=== PATIENT | male | born 1965 | race Caucasian/White ===

== ENCOUNTER 2024-05-17 12:36 | Outpatient (OUT) | payer BC, SELFPAY | END 2024-05-17 12:37 | disposition home or self-care (01) | LOC: PST 12:37 | PROVIDERS: PCP Family Medicine; Visit Provider Surgery | DX: Z12.11 Encounter for screening for malignant neoplasm of colon (principal) ==

== ENCOUNTER 2024-05-22 07:34 | Day surgery (SDC) | payer BC, SELFPAY ==
--- OUTSIDE RECORDS SUMMARY | 2024-05-22 07:38 | XMS_ITS | CCD ---
Author Organization [facility] Care Team Providers Care End Maker Name Role Phone DR MIHIR ROGERS Primary Care Unavailable MARCO DIALLO Admitting Unavailable KATKOMARCO Attending Unavailable KATKOMARCO Consulting Unavailable THEODORE, DR ANTHONY Mckeon Admitting Unavailable THEODORE, DR ANTHONY Mckeon Attending Unavailable THEODORE, DR ANTHONY Mckeon Primary Care Unavailable THEODORE, DR ANTHONY Mckeon Consulting Unavailable THEODORE, DR ANTHONY Mckeon Admitting Unavailable THEODORE, DR ANTHONY Mckeon Attending Unavailable THEODORE, DR ANTHONY Mckeon Primary Care Unavailable THEODORE, DR ANTHONY Mckeon Consulting Unavailable NADERER, DR MIHIR Mckeon Admitting Unavailable NADERER, DR MIHIR Mckeon Attending Unavailable NADERER, DR MIHIR Mckeon Primary Care Unavailable NADERER, DR MIHIR Mckeon Consulting Unavailable NADERER, DR MIHIR Mckeon Admitting Unavailable NADERER, DR MIHIR Mckeon Attending Unavailable NADERER, DR MIHIR Mckeon Primary Care Unavailable NADERER, DR MIHIR Mckeon Consulting Unavailable NADERER, DR MIHIR Mckeon Admitting Unavailable NADERER, DR MIHIR Mckeon Attending Unavailable NADERER, DR MIHIR Mckeon Primary Care Unavailable WEST, DR DEBBI Anaya Consulting Unavailable NADERER, DR MIHIR Mckeon Consulting Unavailable SHAYLEE SANTIAGO Admitting Unavailable SHAYLEE SANTIAGO Attending Unavailable SHAYLEE SANTIAGO Consulting Unavailable THEODORE, DR ANTHONY Mckeon Primary Care Unavailable NADEREJoce, MIHIR Primary Care Physician [phone] MIHIR ROGERS Attending Unavailable NADERER, MIHIR Admitting Unavailable NADERER, MIHIR Attending Unavailable Unavailable Primary Care Provider UnavailMICHAEL Pereira Attending Unavailable Medications Current Medications Medication Drug Class(es) Dates Sig (Normalized) Sig (Original) bisacodyl 5 mg delayed release oral tablet (2 sources) Stimulant Laxative Start: 05-15-2024 take 1 tablet by mouth in the morning bisacodyl (Dulcolax) 5 MG EC tablet Indications: Encounter for screening colonoscopy Take 1 tablet (5 mg) by mouth in the morning and 1 tablet (5 mg) before bedtime. Do not crush, chew, or split. Take as detailed on clinic hand out for colonoscopy prep. 4 tablet 05/15/2024 Active Start: 05-15-2024 take 1 tablet by reinaldo th in the morning bisacodyl (Dulcolax) 5 MG EC tablet Indications: Encounter for screening colonoscopy Take 1 tablet (5 mg) by mouth in the morning and 1 tablet (5 mg) before bedtime. Do not crush, chew, or split. Take as detailed on clinic hand out for colonoscopy prep. 4 tablet 05/15/2024 Active hydroCHLOROthiazide 12.5 mg / lisinopril 20 mg oral tablet (3 sources) Thiazide Diuretic, Angiotensin Converting Enzyme Inhibitor Start: 10-11-2023 End: 10-10-2024 take 1 tablet by mouth once daily lisinopril-hydroCHLOROthiazide 20-12.5 MG tablet Indications: Essential hypertension, benign (CMS/HCC) Take 1 tablet by mouth Daily 30 tablet 11 10/11/2023 10/10/2024 Active polyethylene glycol 3350 85657 mg powder for oral solution (2 sources) Osmotic Laxative Start: 05-15-2024 End: 05-15-2024 take 17 g by mouth once polyethylene glycol, PEG, 3350 (Glycolax) 17 GM/SCOOP powder Indications: Colonoscopy Take 238 g by mouth 1 (one) time for 1 dose Take as detailed from clinic hand out for colonoscopy prep 238 g 05/15/2024 05/15/2024 Active Problems Active Problems Problem Classification Problem Date Documented Date Episodic/Chronic Other nutritional; endocrine; and metabolic disorders (4 sources) Obesity, unspecified; Translations: [OBESITY UNSPECIFIED] Onset: 08-31-2021 Chronic Other screening for suspected conditions (not mental disorders or infectious disease) (12 sources) Abnormal result of other cardiovascular function study; Translations: [Other specified abnormal findings of blood chemistry] Onset: 09-23-2020 Episodic Past or Other Problems Problem Classification Problem Date Documented Da te Episodic/Chronic Immunizations and screening for infectious disease (4 sources) Encounter for immunization; Translations: [ENCOUNTER FOR IMMUNIZATION] Onset: 09-08-2020 Episodic Nonspecific chest pain (4 sources) Chest pain, unspecified; Translations: [CHEST PAIN UNSPECIFIED] Onset: 04-14-2021 Episodic Other connective tissue disease (3 sources) Other specified soft tissue disorders; Translations: [OTHER SPEC SOFT TISSUE DISORDERS] Onset: 04-14-2021 Episodic Skin and subcutaneous tissue infections (1 source) Cellulitis of left finger; Translations: [CELLULITIS OF LEFT FINGER] Onset: 04-16-2021 Episodic Results Test Name Value Interpretation Reference Range Facility Auto Diffon 11-08-2022 Basophils/100 WBC (Bld) 1.1 % Normal 0.0-2.0 [facility] Comment on above: Order Comment: Order Added by Discern Expert. Performed By: #### 2 018671, 9684567, 5030318, 8697962, 3711178, 12843060, 85869207, 383236764, 5711667 #### [facility] [address] [place] [address] Basophils/Leukocytes Auto (Bld) [Pure # fraction] 0.1 E9/L Normal 0.0-0.2 [facility] Comment on above: Order Comment: Order Added by Discern Expert. Performed By: #### 2 361566, 5190238, 3966239, 1470268, 2332640, 54373721, 93500801, 821345883, 0823178 #### [facility] [address] [place] [address] Eosinophils/100 WBC (Bld) 3.6 % Normal 0.0-8.0 [facility] Comment on above: Order Comment: Order Added by Discern Expert. Performed By: #### 2 928296, 6309565, 1869342, 5245321, 4595099, 34782800, 40383468, 255177719, 1442466 #### [facility] [address] [place] [address] Eosinophils/Leukocyte s Auto (Bld) [Pure # fraction] 0.3 E9/L Normal 0.0-0.5 [facility] Comment on above: Order Comment: Order Added by Discern Expert. Performed By: #### 2 059179, 7822829, 1045083, 0897237, 1508252, 92478751, 74175110, 318964977, 4515410 #### [facility] [address] [place] [address] Lymphocytes/100 WBC (Bld) 21.1 % Normal 14.0-50.0 [facility] Comment on above: Order Comment: Order Added by Discern Expert. Performed By: #### 2 809111, 9350811, 6929703, 6976218, 5218646, 88572786, 69328975, 008985191, 8489533 #### [facility] [address] [place] [address] Lymphocytes/Leukocyte s Auto (Bld) [Pure # fraction] 1.9 E9/L Normal 1.0-4.0 [facility] Comment on above: Order Comment: Order Added by Discern Expert. Performed By: #### 2 264986, 5649921, 4943297, 8299899, 3174637, 84251711, 18940341, 173925430, 1950224 #### [facility] [address] [place] [address] Monocytes/100 WBC (Bld) 7.7 % Normal 4.0-14.0 [facility] Comment on above: Order Comment: Order Added by Discern Expert. Performed By: #### 2 050908, 5968470, 4386174, 8021369, 2196934, 00904331, 07911651, 117049316, 0195966 #### [facility] [address] [place] [address] Monocytes/Leukocytes Auto (Bld) [Pure # fraction] 0.7 E9/L Normal 0.2-1.0 [facility] Comment on above: Order Comment: Order Added by Discern Expert. Performed By: #### 2 505840, 7791998, 0282770, 8611531, 6167049, 31818207, 44548328, 232792776, 8879653 #### [facility] [address] [place] [address] Neutrophils/100 WBC (Bld) 66.5 % Normal 36.0-75.0 [facility] Comment on above: Order Comment: Order Added by Discern Expert. Performed By: #### 2 376501, 4241154, 3478058, 9489400, 0933359, 49817086, 19048061, 143284809, 5604715 #### [facility] [address] [place] [address] Neutrophils/Leukocyte s Auto (Bld) [Pure # fraction] 6.1 E9/L Normal 2.0-7.5 [facility] Comment on above: Order Comment: Order Added by Discern Expert. Performed By: #### 2 125989, 8777073, 0675195, 2497158, 3310152, 41427215, 73816502, 358874058, 6770456 #### [facility] [address] [place] [address] BMPon 11-08-2022 Anion gap [Moles/Vol] 12 mmol/L Normal 6-16 [facility] Comment on above: Performed By: #### 2 806244, 8912747, 7005870, 6400455, 1099781, 72412683, 77116230, 214508808, 1892697 #### [facility] [address] [place] [address] Calcium [Mass/Vol] 9.4 mg/dL Normal 8.9-11.1 [facility] Comment on above: Performed By: #### 2 015339, 7445294, 1264532, 0707696, 8951535, 46385538, 39606262, 072540025, 5020436 #### [facility] [address] [place] [address] Chloride [Moles/Vol] 107 mmol/L Normal 101-111 [facility] Comment on above: Performed By: #### 2 347388, 0506845, 2297817, 0130091, 5700662, 12595481, 29071851, 330326021, 3299107 #### [facility] [address] [place] [address] CO2 [Moles/Vol] 26 mmol/L Normal 21-31 [facility] Comment on above: Performed By: #### 2 928950, 9667984, 2169627, 6145352, 9492257, 83380231, 46701844, 450725087, 3320294 #### [facility] [address] [place] [address] Creatinine [Mass/Vol] 1.2 mg/dL Normal 0.5-1.3 [facility] Comment on above: Performed By: #### 2 824734, 2128949, 5016387, 4974445, 5030214, 78299553, 18699874, 100793990, 7025936 #### [facility] [address] [place] [address] Glucose [Mass/Vol] 93 mg/dL Normal 55-199 [facility] Comment on above: Result Comment: If t his glucose result represents a fasting glucose, interpretation should refer to the following reference range: 55-99 mg/dL Performed By: #### 2 177165, 5459034, 4787346, 0263101, 0001007, 40981367, 65086927, 113505720, 6567660 #### [facility] [address] [place] [address] Potassium [Moles/Vol] 4.1 mmol/L Normal 3.5-5.3 [facility] Comment on above: Performed By: #### 2 111043, 3262610, 9410089, 6455832, 3459513, 97192385, 76378691, 487512990, 1923075 #### [facility] [address] [place] [address] Sodium [Moles/Vol] 141 mmol/L Normal 135-145 [facility] Comment on above: Performed By: #### 2 978458, 4707877, 8752228, 2471500, 7095617, 09449885, 07248362, 243285498, 6054234 #### [facility] [address] [place] [address] Urea nitrogen [Mass/Vol] 20 mg/dL Normal 5-21 [facility] Comment on above: Performed By: #### 2 814367, 0740092, 1434487, 0056329, 9831795, 66074261, 75538645, 910790265, 8562995 #### [facility] [address] [place] [address] Urea nitrogen/Creatinine [Mass ratio] 17 No Units Normal 10-20 [facility] Comment on above: Performed By: #### 2 129496, 9302686, 8017727, 3571801, 3605973, 38502366, 26886296, 121380191, 6609712 #### [facility] [address] [place] [address] CBC w/ Auto Diffon 3 Erythrocyte distribution width (RBC) [Ratio] 13.7 % Normal 10.9-14.2 [facility] Comment on above: Performed By: #### 2 080462, 7783434, 6881914, 9470462, 8432764, 83266970, 39549973, 680278488, 1659246 #### [facility] [address] [place] [address] Hematocrit (Bld) [Volume fraction] 46.5 % Normal 37.7-49.0 [facility] Comment on above: Performed By: #### 2 915893, 2876039, 2386042, 0664146, 4764754, 20583638, 21603920, 534092663, 6399459 #### [facility] [address] [place] [address] Hemoglobin (Bld) [Mass/Vol] 15.7 g/dL Normal 13.5-17.5 [facility] Comment on above: Performed By: #### 2 184063, 9996641, 8870754, 1857215, 0034798, 48386455, 87492626, 258313590, 9738683 #### [facility] [address] [place] [address] MCH (RBC) [Entitic mass] 30.0 pg Normal 27.0-34.0 [facility] Comment on above: Performed By: #### 2 045428, 1641878, 5133653, 7823759, 9785777, 29482615, 96814023, 755729612, 6243769 #### [facility] [address] [place] [address] MCHC (RBC) [Mass/Vol] 33.7 g/dL Normal 31.4-36.0 [facility] Comment on above: Performed By: #### 2 196167, 8760597, 2351838, 4428544, 3719587, 06609015, 62780325, 432851210, 9064922 #### [facility] [address] [place] [address] MCV (RBC) [Entitic vol] 89.1 fL Normal 80.0-100.0 [facility] Comment on above: Performed By: #### 2 776272, 4121681, 9327850, 7935088, 4279000, 57295044, 71141424, 958611509, 7083692 #### [facility] [address] [place] [address] Platelet mean volume (Bld) [Entitic vol] 9.5 fL Normal 6.4-10.8 [facility] Comment on above: Performed By: #### 2 031406, 6742522, 5236015, 6890177, 6067682, 14709337, 81170977, 636894133, 6336529 #### [facility] [address] [place] [address] Platelets (Bld) [#/Vol] 276.0 E9/L Normal 150.0-500.0 [facility] Comment on above: Performed By: #### 2 320444, 9927426, 8209399, 7916679, 4181646, 60632488, 97078224, 741648480, 3843450 #### [facility] [address] [place] [address] RBC (Bld) [#/Vol] 5.2 E12/L Normal 4.3-5.9 [facility] Comment on above: Performed By: #### 2 589700, 4975839, 6553653, 3406442, 8269635, 34728251, 50315554, 047003925, 3206253 #### [facility] [address] [place] [address] WBC corrected for nucl RBC Auto (Bld) [#/Vol] 9.1 E9/L Normal 4.0-11.0 [facility] Comment on above: Performed By: #### 2 056476, 7120685, 4993666, 9680836, 5597773, 81898735, 62340847, 929504829, 9914804 #### [facility] [address] [place] [address] CHEMISTRYOrdered By: SYSTEM SYSTEM on 11-08-2022 Albumin [Mass/Vol] 4.1 g/dL Normal 3.3 - 5.0 gm/dL [facility] Albumin/Globulin [Mass ratio] 1.2 {ratio} Normal 1.1 - 2.2 [facility] ALP [Catalytic activity/Vol] 61 [iU]/d Normal 21 - 98 Int._Unit/L [facility] ALT No additional P-5'-P [Catalytic activity/Vol] 21 [iU]/d Normal 6 - 46 Int._Unit/L [facility] Anion gap [Moles/Vol] 12 mmol/L Normal 6 - 16 mEq/L [facility] AST [Catalytic activity/Vol] 22 [iU]/d Normal 5 - 43 Int._Unit/L [facility] Bilirubin [Mass/Vol] 0.8 mg/dL Normal 0.0 - 1 .1 mg/dL [facility] Bilirubin.direct [Mass/Vol] 0.1 mg/dL Normal 0.1 - 0.4 mg/dL [facility] Bilirubin.indirect [Mass or moles/Vol] 0.7 mg/dL Normal 0.1 - 0.9 mg/dL [facility] Calcium [Mass/Vol] 9.4 mg/dL Normal 8.9 - 11. 1 mg/dL [facility] Chloride [Moles/Vol] 107 mmol/L Normal 101 - 1 11 mmol/L [facility] Cholesterol [Mass/Vol] 145 mg/dL Normal 120 - 200 mg/dL [facility] Cholesterol in HDL [Mass/Vol] 43 mg/dL Invalid Interpretation Code [facility] Cholesterol in LDL [Mass/Vol] 78 mg/dL Normal <=129mg/dL [facility] Cholesterol in VLDL [Mass/Vol] 23 mg/dL Normal 7 - 40 mg/dL [facility] CO2 [Moles/Vol] 26 mmol/L Normal 21 - 31 mmol/L [facility] Creatinine [Mass/Vol] 1.2 mg/dL Normal 0.5 - 1.3 mg/dL [facility] GFR/1.73 sq M.predicted among non-blacks MDRD (S/P/Bld) [Vol rate/Area] 70 mL/min/1.73 m2 Normal >=59mL/min/1 .73 m2 [facility] Chem S Globulin (S) [Mass/Vol] 3.3 g/dL Normal 1.4 - 4.0 gm/dL [facility] Glucose [Mass/Vol] 93 mg/dL Normal 55 - 199 mg/dL [facility] Potassium [Moles/Vol] 4.1 mmol/L Normal 3.5 - 5.3 mmol/L [facility] Prostate specific Ag [Mass/Vol] 2.9 ng/mL Normal 0.1 - 3.5 ng/mL [facility] Protein [Mass/Vol] 7.4 g/dL Normal 6.0 - 7.8 gm/dL [facility] Sodium [Moles/Vol] 141 mmol/L Normal 135 - 145 mmol/L [facility] Triglyceride [Mass/Vol] 116 mg/dL Normal <=149mg/dL [facility] TSH Qn 1.38 m[IU]/L Normal 0.34 - 5.60 mcIU/mL [facility] Urea nitrogen [Mass/Vol] 20 mg/dL Normal 5 - 21 mg/dL [facility] Urea nitrogen/Creatinine [Mass ratio] 17 mg/mg Normal 10 - 20 [facility] CHEMISTRYOrdered By: Latha Chino on 11-08-2022 HbA1c (Bld) [Mass fraction] 5.1 % Normal <=5.9% [facility] Consent for Treatmenton Consent for Treatment [id number] .[id number]:127 Normal [facility] HEMATOLOGYOrdered By: SYSTEM SYSTEM on 11-08-2022 Basophils/100 WBC (Bld) 1.1 % Normal 0.0 - 2.0 % [facility] Basophils/Leukocytes Auto (Bld) [Pure # fraction] 0.1 E9/L Normal 0.0 - 0.2 E9/L [facility] Eosinophils/100 WBC (Bld) 3.6 % Normal 0.0 - 8.0 % [facility] Eosinophils/Leukocyte s Auto (Bld) [Pure # fraction] 0.3 E9/L Normal 0.0 - 0.5 E9/L [facility] Lymphocytes/100 WBC (Bld) 21.1 % Normal 14.0 - 50.0 % [facility] Lymphocytes/Leukocyte s Auto (Bld) [Pure # fraction] 1.9 E9/L Normal 1.0 - 4.0 E9/L [facility] Monocytes/100 WBC (Bld) 7.7 % Normal 4.0 - 14.0 % [facility] Monocytes/Leukocytes Auto (Bld) [Pure # fraction] 0.7 E9/L Normal 0.2 - 1.0 E9/L [facility] Neutrophils/100 WBC (Bld) 66.5 % Normal 36.0 - 75.0 % [facility] Neutrophils/Leukocyte s Auto (Bld) [Pure # fraction] 6.1 E9/L Normal 2.0 - 7.5 E9/L [facility] HEMATOLOGYOrdered By: Zahira Mchugh on 11-08-2022 Erythrocyte distribution width (RBC) [Ratio] 13.7 % Normal 10.9 - 14.2 % [facility] Hematocrit (Bld) [Volume fraction] 46.5 % Normal 37.7 - 49.0 % [facility] Hemoglobin (Bld) [Mass/Vol] 15.7 g/dL Normal 13.5 - 17.5 gm/dL [facility] MCH (RBC) [Entitic mass] 30.0 pg Normal 27.0 - 34.0 pg FT HemeAutoSS MCHC (RBC) [Mass/Vol] 33.7 g/dL Normal 31.4 - 36.0 gm/dL FT HemeAutoSS MCV (RBC) [Entitic vol] 89.1 fL Normal 80.0 - 100.0 fL [facility] HemeAutoSS Platelet mean volume (Bld) [Entitic vol] 9.5 fL Normal 6.4 - 10.8 fL [facility]eAutoSS Platelets (Bld) [#/Vol] 276.0 E9/L Normal 150.0 - 500.0 E9/L [facility]eAutoSS RBC (Bld) [#/Vol] 5.2 E12/L Normal 4.3 - 5.9 E12/L [facility]eAutoSS WBC corrected for nucl RBC Auto (Bld) [#/Vol] 9.1 E9/L Normal 4.0 - 11.0 E9/L [facility] Hep Func Panelon 11-08-2022 Albumin [Mass/Vol] 4.1 g/dL Normal 3.3-5.0 [facility] Comment on above: Performed By: #### 2 027016, 8376683, 0199019, 9822346, 0455896, 62376826, 29440741, 518971644, 9435258 #### [facility] [address] [place] [address] Albumin/Globulin (S) [Mass conc ratio] 1.2 Normal 1.1-2.2 [facility] Comment on above: Performed By: #### 2 499474, 3719469, 7617530, 1816824, 7723079, 34602225, 51379109, 082963997, 7797253 #### [facility] [address] [place] [address] ALP [Catalytic activity/Vol] 61 Int._Unit/L Normal 21-98 [facility] Comment on above: Performed By: #### 2 247144, 7655829, 8554755, 0356020, 5790110, 78579227, 36401761, 335160119, 8291324 #### [facility] [address] [place] [address] ALT No additional P-5'-P [Catalytic activity/Vol] 21 Int._Unit/L Normal 6-46 [facility] Comment on above: Performed By: #### 2 390011, 2622807, 8962579, 9157090, 6410539, 95150646, 24626329, 003316561, 0900435 #### [facility] [address] [place], [place] [address] AST [Catalytic activity/Vol] 22 Int._Unit/L Normal 5-43 [facility] Comment on above: Performed By: #### 2 971658, 8441592, 3679900, 3585890, 4412264, 86210861, 03610100, 346813726, 6856753 #### [facility] [address] [place] [address] Bilirubin [Mass/Vol] 0.8 mg/dL Normal 0.0-1.1 [facility] Comment on above: Performed By: #### 2 307976, 0904157, 2213983, 3325469, 9838936, 64437579, 74101542, 055648165, 3046708 #### [facility] [address] [place] [address] Bilirubin.direct [Mass/Vol] 0.1 mg/dL Normal 0.1-0.4 [facility] Comment on above: Performed By: #### 2 738618, 9922530, 6639334, 0825503, 8859289, 78983781, 92905678, 562244005, 4521118 #### [facility] [address] [place] [address] Bilirubin.indirect [Mass or moles/Vol] 0.7 mg/dL Normal 0.1-0.9 [facility] Comment on above: Performed By: #### 2 656329, 8514338, 9179976, 0027310, 0891684, 24789950, 09960362, 401679175, 9006422 #### [facility] [address] [place] [address] Globulin (S) [Mass/Vol] 3.3 g/dL Normal 1.4-4.0 [facility] Comment on above: Performed By: #### 2 995498, 9235899, 6864926, 0082349, 6021951, 60729619, 89207715, 209366968, 6031002 #### [facility] [address] [place] [address] Protein [Mass/Vol] 7.4 g/dL Normal 6.0-7.8 [facility] Comment on above: Performed By: #### 2 661617, 1156831, 2659959, 7083847, 7028216, 84049475, 03980281, 193804511, 6262094 #### [facility] [address] [place] [address] [id number] 11-08-2022 HbA1c (Bld) [Mass fraction] 5.1 % Normal <=5.9 [facility] Comment on above: Performed By: #### 2 529055, 7941520, 6247875, 3662109, 6982371, 55207130, 59040230, 916261660, 2373560 #### [facility] [address] [place] [address] Lipid Panelon 11-08-2022 Cholesterol [Mass/Vol] 145 mg/dL Normal 120-200 [facility] Comment on above: Performed By: #### 2 186432, 9922491, 3190823, 5248950, 3106591, 32435718, 43382420, 492711259, 9452894 #### [facility] [address] [place] [address] Cholesterol in HDL [Mass/Vol] 43 mg/dL Invalid Interpretation Code [facility] Comment on above: Result Comment: HDL > or equal to 60 mg/dL: Low cardiovascular risk HDL < 40 mg/dL : High cardiovascular risk Performed By: #### 2 258867, 3732551, 0799956, 6016956, 5464951, 61402069, 07247404, 515638248, 8944671 #### [facility] [address] [place] [address] Cholesterol in LDL [Mass/Vol] 78 mg/dL Normal <=129 [facility] Comment on above: Performed By: #### 2 207736, 4818134, 0442530, 5726890, 3960934, 82948503, 19135738, 572843243, 8758696 #### [facility] [address] [place] [address] Cholesterol in VLDL [Mass/Vol] 23 mg/dL Normal 7-40 [facility] Comment on above: Performed By: #### 2 212772, 5695927, 2252301, 5165668, 0414972, 53582956, 82343085, 811689517, 6514351 #### [facility] [address] [place] [address] Triglyceride [Mass/Vol] 116 mg/dL Normal <=149 [facility] Comment on above: Performed By: #### 2 100710, 4044427, 9650593, 3107160, 7999506, 42428613, 79226869, 656891157, 3809649 #### [facility] [address] [place] [address] PSA Totalon 11-08-2022 Prostate specific Ag [Mass/Vol] 2.9 ng/mL Normal 0.1-3.5 [facility] Comment on above: Result Comment: The concentration of PSA determined by different manufacturers can vary due to differences in assay methods and reagent specificity. Values obtained from different assay methods cannot be used interchangeably. The methodology used for this result was chemiluminescence using [employer]s Access [employer] PSA reagent. Performed By: #### 2 085710, 9493768, 2906860, 6511190, 2371214, 92801066, 86147854, 685508891, 9862508 ####[facility] [address] [place] [address] Physician Orderon 11-08-2022 Physician Order [id number] .00CD:127 Normal [facility] TSHon 11-08-2022 TSH Qn 1.38 m[IU]/L Normal 0.34-5.60 [facility] Comment on above: Performed By: #### 2 100777, 2515873, 3815294, 3680938, 7974361, 79040423, 28574478, 811668610, 6211404 #### [facility] [address] [place] [address] eGFRon 11-08-2022 GFR/1.73 sq M.predicted among non-blacks MDRD (S/P/Bld) [Vol rate/Area] 70 mL/min/1.73 m2 Normal >=59 [facility] Comment on above: Order Comment: Order added by Discern Expert. Result Comment: Clinical Education Specialist leona kidney disease could be indicated at eGFR's of less than 60 mL/min/1.73m2. Kidney failure is indicated at less than 15 mL/min/1.73m2. Performed By: #### 2 247991, 7213118, 4321882, 0926994, 4320506, 70576013, 15049637, 418630759, 2040125 #### [facility] [address] [place] [address] CBC AUTO DIFFon 08-31-2021 BASO # 0.1 103/ul Normal 0.0-0.1 [facility] Comment on above: Performed By: #### C BC ####[facility] [address] [place], [place] [address]Zc. Darien Galindo Basophils/100 WBC (Bld) 0.7 % Normal 0.2-2.0 [facility] Comment on above: Performed By: #### C BC ####[facility] [address] [place], [place] [address]Ib. Kayleighlan Galindo EO # 0.3 103/ul Normal 0.0-0.7 [facility] Comment on above: Performed By: #### C BC ####[facility] [address] [place] [id number]. Darien Galindo Eosinophils/100 WBC (Bld) 2.5 % Normal 0.9-7.0 [facility] Comment on above: Performed By: #### C BC ####[facility] [facility] [address] [place] [address]Dr. Darien Galindo Erythrocyte distribution width (RBC) [Ratio] 13.6 % Normal 11.0-15.0 [facility] Comment on above: Performed By: #### C BC ####[facility] I[address] [place], [place] [id number]. Darien Galindo Hematocrit (Bld) [Volume fraction] 47.1 % Normal 42.0-54.0 [facility] Comment on above: Performed By: #### C BC ####[facility] Xer[address] [place], [place] [address]Dr. Darien Galindo Hemoglobin (Bld) [Mass/Vol] 15.1 g/dL Normal 14.0-18.0 [facility] Comment on above: Performed By: #### C BC ####[facility] X[address] [place], [place] [address]Dr. Darien Galindo IG # 0.03 10e3/ul Normal 0.00-0.03 [facility] Comment on above: Performed By: #### C BC ####[facility] [address] [place] [address]Dr. Darien Galindo IG % 0.3 % Normal 0.0-0.5 [facility] Comment on above: Performed By: #### C BC ####[facility] [address] [place], [place] [address]Dr. Darien Galindo LYMPH # 2.4 103/ul Normal 1.2-3.8 [facility] Comment on above: Performed By: #### C BC ####[facility] Augdf[address]wr[address] [place], [place] [address]Dr. Darien Galindo Lymphocytes/100 WBC (Bld) 22.3 % Normal 20.5-60.0 [facility] Comment on above: Performed By: #### C BC ####[facility] [address] [place] [id number]. Darien Galindo MANUAL DIFF REQ NO Normal [facility] Comment on above: Performed By: #### C BC ####[facility] [address] [place] [id number]. Darien Galindo MCH (RBC) [Entitic mass] 29.3 pg Normal 25.9-34.0 [facility] Comment on above: Performed By: #### C BC ####[facility] [address] [place] [id number]. Darien Galindo MCHC (RBC) [Mass/Vol] 32.1 g/dL Normal 29.9-35.2 [facility] Comment on above: Performed By: #### C BC ####[facility] [address] [place], [place] [address]Dr. Darien Galindo MCV (RBC) [Entitic vol] 91.5 fL Normal 80.0-94.0 [facility] Comment on above: Performed By: #### C BC ####[facility] [address] [place] [id number]. Darien Galindo MONO # 0.8 103/ul Normal 0.3-0.8 [facility] Comment on above: Performed By: #### C BC ####[facility] Labcotzzif[address] [place], [place] [address]Dr. Darien Mateo Monocytes/100 WBC (Bld) 7.2 % Normal 1.7-12.0 [facility] Comment on above: Performed By: #### C BC ####[facility] [address] [place] [id number]. Darien Galindo NEUT # 7.1 103/ul Critically high 1.4-6.5 [facility] Comment on above: Performed By: #### C BC ####[facility] [address] [place], [place] [address]Dr. Darien Mateo Neutrophils/100 WBC (Bld) 67.0 % Normal 43.0-75.0 [facility] Comment on above: Performed By: #### C BC ####[facility] [address] [place], [place] [address]Ok. Darien Galindo Platelet mean volume (Bld) [Entitic vol] 11.5 fL Normal 9.5-13.5 [facility] Comment on above: Performed By: #### C BC ####[facility] [address] [place], [place] [address]Ca. Darien Galindo PLT 289 103/ul Normal 150-450 [facility] Comment on above: Performed By: #### C BC ####[facility] [address] [place] [id number]. Darien Galindo RBC 5.15 106/ul Normal 4.70-6.10 [facility] Comment on above: Performed By: #### C BC ####[facility] [address] [place] [id number]. Darien Galindo WBC 10.6 103/ul Normal 4.0-11.0 [facility] Comment on above: Performed By: #### C BC ####[facility] [address] [place] [id number] Galindo GLYCOHEMOGLOBIN A1Con 2021 ADA RECOMMENDATION SEE BELOW Normal [facility] Comment on above: Result Comment: ADA RECOMMENDED LIMIT 4.0 - 6.0 ADA THERAPEUTIC TARGET < 7.0 ACTION SUGGESTED > 7.0 Performed By: #### A 1C #### [facility] [address] [address] [address] Darien Galindo Glucose [Mass/Vol] 114 mg/dL Normal [facility] Comment on above: Performed By: #### A 1C #### [facility] [address] [address] [address] Darien Galindo HbA1c (Bld) [Mass fraction] 5.6 % Normal 4.5-6.2 [facility] Comment on above: Performed By: #### A 1C #### [facility] [address] [address] [address] Darien Galindo LIPID PROFILEon 08-31-2021 CHOL-HDL RATIO NORM SEE BELOW Normal [facility] Comment on above: Result Comment: 3.3 - 4.4 LOW RISK 4.4 - 7.1 AVERAGE RISK 7.1 - 11.0 MODERATE RISK >11.0 HIGH RISK Performed By: #### L IPID, TSH, LIVER, BMP ####[facility] [address] [place] [id number]. Darien Galindo Cholesterol [Mass/Vol] 151 mg/dL Normal <=200 [facility] Comment on above: Performed By: #### L IPID, TSH, LIVER, BMP ####[facility] [address] [place] [id number]. Darien Galindo Cholesterol in HDL [Mass/Vol] 47 mg/dL Normal 40-60 [facility] Comment on above: Performed By: #### L IPID, TSH, LIVER, BMP ####[facility] [address] [place] [id number]. Darien Galindo Cholesterol in LDL [Mass/Vol] 75.2 mg/dL Normal [facility] Comment on above: Performed By: #### L IPID, TSH, LIVER, BMP ####[facility] [address] [place] [id number]. Darien Galindo Cholesterol.total/Cho lesterol in HDL [Mass ratio] 3.2 {ratio} Normal [facility] Comment on above: Performed By: #### L IPID, TSH, LIVER, BMP ####[facility] [address] [place] [id number]. Darien Galindo HDL NORMAL > or = 60 mg/dl - LO W CARDIOVASCULAR RISK <40 mg/dl - HIGH CARDIOVASCULAR RISK Normal [facility] Comment on above: Performed By: #### L IPID, TSH, LIVER, BMP ####[facility] [address] [place] [id number]. Darien Galindo LDL CALC NORMAL SEE BELOW Normal [facility] Comment on above: Result Comment: <100 mg/dl OPTIMAL 100 - 129 mg/dl NEAR OR ABOVE OPTIMAL 130 - 159 mg/dl BORDERLINE HIGH 160 - 189 mg/dl HIGH >190 mg/dl VERY HIGH Performed By: #### L IPID, TSH, LIVER, BMP ####[facility] [address] [place], [place] [address]nDr. Darien Galindo Triglyceride [Mass/Vol] 144 mg/dL Normal <=150 [facility] Comment on above: Performed By: #### L IPID, TSH, LIVER, BMP ####[facility] [address] [place], [place] [address]Dr. Darien Galindo VLDL CALC 28.8 mg/dL Normal [facility] Comment on above: Performed By: #### L IPID, TSH, LIVER, BMP ####[facility] [address] [place], [place] [address]Dr. Darien Galindo LIVER PROFILEon 08-31-2021 Albumin [Mass/Vol] 4.0 g/dL Normal 3.4-5.0 [facility] Comment on above: Performed By: #### L IPID, TSH, LIVER, BMP #### [facility] [address] [address] [address] Darien Galindo Albumin/Globulin [Mass ratio] 1.1 {ratio} Normal [facility] Comment on above: Performed By: #### L IPID, TSH, LIVER, BMP #### [facility] [address] [address] [address] Darien Galindo ALP [Catalytic activity/Vol] 63 U/L Normal 46-116 [facility] Comment on above: Performed By: #### L IPID, TSH, LIVER, BMP #### [facility] [address] [address] [address] Darien Galindo ALT [Catalytic activity/Vol] 35 U/L Normal 16-63 [facility] Comment on above: Performed By: #### L IPID, TSH, LIVER, BMP #### [facility] [address] [address] [address] Darien Galindo AST [Catalytic activity/Vol] 29 U/L Normal 15-37 [facility] Comment on above: Performed By: #### L IPID, TSH, LIVER, BMP #### [facility] [address] [address] [address] Darien Galindo BILI, CONJUGATED 0.1 mg/dL Normal 0.0-0.2 [facility] Comment on above: Performed By: #### L IPID, TSH, LIVER, BMP #### [facility] [address] [place] [address] Dr. Darien Galindo Bilirubin [Mass/Vol] 0.4 mg/dL Normal 0.2-1.0 [facility] Comment on above: Performed By: #### L IPID, TSH, LIVER, BMP #### [facility] [address] [place] [address] Dr. Darien Gailndo Globulin (S) [Mass/Vol] 3.6 g/dL Normal [facility] Comment on above: Performed By: #### L IPID, TSH, LIVER, BMP #### [facility] [address] [place] [address] Dr. Darien Galindo Protein [Mass/Vol] 7.6 g/dL Normal 6.1-8.2 [facility] Comment on above: Performed By: #### L IPID, TSH, LIVER, BMP #### [facility] [address] [place] [address] Dr. Darien Galindo PROF CHEM 8 (BAS METB)on Anion gap [Moles/Vol] 13.8 mmol/L Normal [facility] Comment on above: Performed By: #### L IPID, TSH, LIVER, BMP #### [facility] [address] [place] [address] Dr. Darien Galindo Calcium [Mass/Vol] 8.5 mg/dL Normal 8.5-10.1 [facility] Comment on above: Performed By: #### L IPID, TSH, LIVER, BMP #### [facility] [address] [place] [address] Dr. Darien Galindo Chloride [Moles/Vol] 104 mmol/L Normal 98-107 [facility] Comment on above: Performed By: #### L IPID, TSH, LIVER, BMP #### [facility] [address] [place] [address] Dr. Darien Galindo CO2 [Moles/Vol] 27.1 mmol/L Normal 21.0-32.0 [facility] Comment on above: Performed By: #### L IPID, TSH, LIVER, BMP #### [facility] [address] [address] [address] Darien Galindo Creatinine [Mass/Vol] 1.10 mg/dL Normal 0.70-1.30 [facility] Comment on above: Performed By: #### L IPID, TSH, LIVER, BMP #### [facility] [address] [place] [address] Dr. Darien Galindo EGFR-AF [place]IZ[place] >60 Normal >=60 [facility] Comment on above: Performed By: #### L IPID, TSH, LIVER, BMP #### [facility] [address] [place] [address] Dr. Darien Galindo EGFR-NON AF [place]IZ[place] >60 Normal >=60 [facility] Comment on above: Performed By: #### L IPID, TSH, LIVER, BMP #### [facility] [address] [place] [address] Dr. Darien Galindo Glucose [Mass/Vol] 99 mg/dL Normal 74-106 [facility] Comment on above: Performed By: #### L IPID, TSH, LIVER, BMP #### [facility] [address] [place] [address] Dr. Darien Galindo Potassium [Moles/Vol] 3.9 mmol/L Normal 3.5-5.1 [facility] Comment on above: Performed By: #### L IPID, TSH, LIVER, BMP #### [facility] [address] [place] [address] Dr. Darien Galindo Sodium [Moles/Vol] 141 mmol/L Normal 136-145 [facility] Comment on above: Performed By: #### L IPID, TSH, LIVER, BMP #### [facility] [address] [place] [address] Dr. Darien Galindo Urea nitrogen [Mass/Vol] 16.0 mg/dL Normal 7.0-18.0 [facility] Comment on above: Performed By: #### L IPID, TSH, LIVER, BMP #### [facility] [address] [place] [address] Dr. Darien Galindo Urea nitrogen/Creatinine [Mass ratio] 14.5 mg/mg Normal [facility] Comment on above: Performed By: #### L IPID, TSH, LIVER, BMP #### [facility] [address] [address] [address] Darien Galindo TSHon 08-31-2021 TSH 1.202 uIU/mL Normal 0.470-4.680 [facility] Comment on above: Performed By: #### L IPID, TSH, LIVER, BMP #### [facility] [address] [address] [address] Darien Galindo TSH RANGE SEE BELOW Normal [facility] Comment on above: Result Comment: <0.3 4 UIU/ml HYPERTHYROID 0.34-5.60 UIU/ml EUTHYROID >5.60 UIU/ml HYPOTHYROID Performed By: #### L IPID, TSH, LIVER, BMP #### [facility] [address] [place] [address] Dr. Darien Galindo ECHOCARDIO M/2D COMPLETEon 1 06-17-2020 ECHOCARDIO M/2D COMPLETE Patient: LISA ANDRADE Exam Date: 04/16/2021 : 1965 Gender:M Ordering : DR MIHIR ROGERS . Admission #: [id number] Family : Order #: [id number] CLICK HERE TO VIEW EXAM ECHOCARDIOGRAM REPORT PROCEDURE: CARDIO PULMONARY ECHOCARDIO M/2D COMP INDICATIONS: Abnormal stress test COMPARISON: None. DESCRIPTION: COMPLETE ECHOCARDIOGRAM Real-time transthoracic echocardiography with 2D, M-mode, spectral and color flow Doppler performed. QUALITY: Technical quality was good. LEFT VENTRICLE: Normal chamber size. Mild concentric left ventricular hypertrophy. Global left ventricular systolic function is hyperdynamic. Calculated left ventricular ejection fraction is 71%. LV EF: DIASTOLIC: Normal diastolic function. ATRIAL SEPTUM: LEFT ATRIUM: Normal chamber size. RIGHT ATRIUM: Normal chamber size. RIGHT VENTRICLE: Moderate dilatation. Normal right ventricular systolic function. TRICUSPID VALVE: Normal mobility and thickness. No stenosis with trivial regurgitation. No evidence of pulmonary hypertension. RVSP 28 mmHg. MITRAL VALVE: Normal mobility and thickness. No mitral valve prolapse. No evidence of mitral valve stenosis. There is no mitral annular calcification. Trivial mitral regurgitation. AORTIC VALVE: Normal trileaflet appearance. No visible sclerosis. Normal leaflet mobility. No evidence of aortic valve stenosis. No aortic regurgitation. AORTIC ROOT: Normal diameter and appearance. PULMONIC VALVE: Normal thickness and mobility. No stenosis. Trivial regurgitation. PERICARDIUM: No evidence of pericardial effusion. IVC: Collapses with inspirations. Normal Size. PLEURA: CONCLUSION: 1. Normal ventricular function. 2. No significant valvular dysfunction. 3. Normal right-sided pressures. 4. No pericardial effusion. Adult Echocardiography Procedure Report Left Ventricle LVEDD (3.7 - 5.6 cm): 4.63 cm LVESD (2.2 - 4.0 cm): 2.81 cm LVIVS thickness (0.6 - 1.2 cm): 1.20 cm LVPW thickness (0.5 - 1.0 cm): 1.19 cm e': 11.10 cm/s E - e': 6.10 LVOT Area (cm2): 3.46 cm2 LVOT Diameter 2.10 cm Left Ventricular Ejection Fraction (A4C): 75 % Left Atrium LA Volume Index (2D A2C): 20.70 ml/m2 Left Atrium Systolic Dimension: 3.70 cm Left Atrium Systolic Area(A2C): 14.90 cm2 Left Atrium Systolic Area(A4C): 17.30 cm2 Left Atrium Systolic Volume(A2C): 90216 mm3 Left Atrium Systolic Volume(A4C): 01329 mm3 Mitral Valve MV E to A Ratio: 1 Mitral Valve A-Wave Peak Velocity: 68.60 cm/s Mitral Valve E-Wave Peak Velocity: 68.10 cm/s Right Ventricle RV Internal Diastolic Dimension: 3.64 cm Aorta AO Root Diam: 3.70 cm Aortic Valve AoV Area (Peak Vicente): 2.65 cm2 Aortic Valve Cusp Separation: 2.10 cm Peak Velocity(Antegrade Flow): 114.00 cm/s Peak Gradient(Antegrade Flow): 5 mm[Hg] Tricuspid Valve Peak Velocity (Regurgitant Flow): 183.00 cm/s Pulmonic Valve Peak Velocity: 127.00 cm/s Peak Gradient: 6 mm[Hg] Right Atrium Dictated by: Sid Gonsales M.D. on 04/16/2021 at 19:16 Approved by: Sid Gonsales M.D. on 04/16/2021 at 19:18 Normal [facility] NM STRESS/REST MULTIon 04-14 NM STRESS/REST MULTI Patient: LISA ANDRADE Exam Date: 04/14/2021 : 1965 Gender:M Ordering : DR MIHIR ROGERS . Admission #: [id number] Family : DR. MARCO DIALLO M.D. Order #: [id number] CLICK HERE TO VIEW EXAM RADIOLOGY REPORT PROCEDURE: RADIONUCLIDE IMAGING STRESS/REST MULTI COMPARISON: None. INDICATIONS: Chest pain TECHNIQUE: Exam Description: Stress/Rest one day protocol gated SPECT Rest Imagin.7 mCi Tc-99m Cardiolite IV on 04/14/2021 Stress Imaging 31.7 mCi Tc-99m Cardiolite IV on 04/14/2021 Exercise Protocol: Pedro Heart Rate (bpm): Rest: 52 Max: 50 PMHR: 91 Blood Pressure: Rest: 134/86 Max: 196/88 Exercise Time: Minutes: 5 Seconds: 30 Stage Reached: Stage: 2 Mets 7.0 Symptoms: Rest and peak stress ECG findings were normal and the exercise portion of the study was normal per attending physician Dr. Gerber . For more details please see separate cardiac stress test report. FINDINGS: QUALITY OF STUDY: Good. PERFUSION DEFECT: LOCATION: Basal inferior. Mid-inferior. SIZE: Small (1-2 segments). SEVERITY: Moderate. TYPE: Persistent. WALL MOTION: Normal. LV SIZE: Normal. 99 mL. TID / TCD: None; 0.99 LVEF: Normal. Calculated EF 63%. SUMMARY: Myocardial perfusion imaging study has ABNORMAL findings. CONCLUSION: 1. Fixed defect inferior wall, RCA distribution. Possibly diaphragmatic attenuation 2. No reversible ischemia 3. Normal exercise test Dictated by: Debbi Garcia MD on 04/14/2021 at 13:15 Approved by: Debbi Garcia MD on 04/14/2021 at 13:16 Normal [facility] PROF CHEM 8 (BAS METB)on Anion gap [Moles/Vol] 11.2 mmol/L Normal [facility] Comment on above: Performed By: #### B MP #### [facility] [address] [place] [address] Kiana Wolff Calcium [Mass/Vol] 8.8 mg/dL Normal 8.4-10.2 [facility] Comment on above: Performed By: #### B MP #### [facility] [address] [place] [address] Kiana Mariella Chloride [Moles/Vol] 106 mmol/L Normal 98-107 [facility] Comment on above: Performed By: #### B MP #### [facility] [address] [place] [address] Kiana Mariella CO2 [Moles/Vol] 27.9 mmol/L Normal 22.0-30.0 [facility] Comment on above: Performed By: #### B MP #### [facility] [address] [place] [address] Kiana Mariella Creatinine [Mass/Vol] 1.17 mg/dL Normal 0.66-1.25 [facility] Comment on above: Performed By: #### B MP #### [facility] [address] [place] [address] Kiana Mariella EGFR-AF [place]IZ[place] >60 Normal >=60 [facility] Comment on above: Performed By: #### B MP #### [facility] [address] [place] [address] Kiana Mariella EGFR-NON AF [place]IZ[place] >60 Normal >=60 [facility] Comment on above: Performed By: #### B MP #### [facility] [address] [place] [address] Kiana Mariella Glucose [Mass/Vol] 92 mg/dL Normal 74-106 [facility] Comment on above: Performed By: #### B MP #### [facility] [address] [place] [address] Kiana Mariella Potassium [Moles/Vol] 4.1 mmol/L Normal 3.4-5.0 [facility] Comment on above: Performed By: #### B MP #### [facility] [address] [place] [address] Kiana Mariella Sodium [Moles/Vol] 141 mmol/L Normal 137-145 [facility] Comment on above: Performed By: #### B MP #### [facility] [address] [place], [place] [address] Kiana Mariella Urea nitrogen [Mass/Vol] 17.0 mg/dL Normal 9.0-20.0 [facility] Comment on above: Performed By: #### B MP #### [facility] [address] [place], [place] [address] Kiana Mariella Urea nitrogen/Creatinine [Mass ratio] 14.5 mg/mg Normal [facility] Comment on above: Performed By: #### B MP #### [facility] [address] [id number] Kiana Mariella PROF 14(COMP METB)on 021 Albumin [Mass/Vol] 3.8 g/dL Normal 3.5-5.0 [facility] Comment on above: Performed By: #### P DANTE, CMP #### [facility] [address] [place], [place] [address] Kiana Mariella Albumin/Globulin [Mass ratio] 1.0 {ratio} Normal [facility] Comment on above: Performed By: #### P ZEBC, CMP #### [facility] [address] [place], [place] [address] Kiana Mariella ALP [Catalytic activity/Vol] 64 U/L Normal 38-126 [facility] Comment on above: Performed By: #### P ZEBC, CMP #### [facility] [address] [place] [address] Kiana Mariella ALT [Catalytic activity/Vol] 26 U/L Normal 21-72 [facility] Comment on above: Performed By: #### P SASC, CMP #### [facility] [address] [place], [place] [address] Kiana Mariella Anion gap [Moles/Vol] 10.3 mmol/L Normal [facility] Comment on above: Performed By: #### P SASC, CMP #### [facility] [address] [place], [place] [address] Kiana Mariella AST [Catalytic activity/Vol] 25 U/L Normal 17-59 [facility] Comment on above: Performed By: #### P SASC, CMP #### [facility] [address] [place], [place] [address] Kiana Mariella Bilirubin [Mass/Vol] 0.5 mg/dL Normal 0.2-1.3 [facility] Comment on above: Performed By: #### P SASC, CMP #### [facility] [address] [place], [place] [address] Kiana Mariella Calcium [Mass/Vol] 8.8 mg/dL Normal 8.4-10.2 [facility] Comment on above: Performed By: #### P SASC, CMP #### [facility] [address] [id number] Kiana Mariella Chloride [Moles/Vol] 104 mmol/L Normal 98-107 [facility] Comment on above: Performed By: #### P SASC, CMP #### [facility] [address] [place] [address] Kiana Mariella CO2 [Moles/Vol] 29.1 mmol/L Normal 22.0-30.0 [facility] Comment on above: Performed By: #### P SASC, CMP #### [facility] [address] [id number] Kiana Mariella Creatinine [Mass/Vol] 1.29 mg/dL Critically high 0.66-1.25 [facility] Comment on above: Performed By: #### P SASC, CMP #### [facility] [address] [id number] Kiana Mariella EGFR-AF [place]IZ[place] >60 Normal >=60 [facility] Comment on above: Performed By: #### P SASC, CMP #### [facility] [address] [id number] Kiana Mariella EGFR-NON AF [place] CIT[place] 58 mL/min/1.73m2 Critically low >=60 [facility] Comment on above: Performed By: #### P SASC, CMP #### [facility] [address] [id number] Kiana Mariella Globulin (S) [Mass/Vol] 3.7 g/dL Normal [facility] Comment on above: Performed By: #### P SASC, CMP #### [facility] [address] [place], [place] [address] Kiana Mariella Glucose [Mass/Vol] 103 mg/dL Normal 74-106 [facility] Comment on above: Performed By: #### P SASC, CMP #### [facility] [address] [place], [place] [address] Kiana Mariella Potassium [Moles/Vol] 4.4 mmol/L Normal 3.4-5.0 [facility] Comment on above: Performed By: #### P SASC, CMP #### [facility] [address] [place], [place] [address] Kiana Mariella Protein [Mass/Vol] 7.5 g/dL Normal 6.1-8.2 [facility] Comment on above: Performed By: #### P SASC, CMP #### [facility] [address] [place], [place] [address] Kiana Mariella Sodium [Moles/Vol] 139 mmol/L Normal 137-145 [facility] Comment on above: Performed By: #### P SASC, CMP #### [facility] [address] [place], [place] [address] Kiana Mariella Urea nitrogen [Mass/Vol] 15.0 mg/dL Normal 9.0-20.0 [facility] Comment on above: Performed By: #### P SASC, CMP #### [facility] [address] [place], [place] [address] Kiana Mariella Urea nitrogen/Creatinine [Mass ratio] 11.6 mg/mg Normal [facility] Comment on above: Performed By: #### P SASC, CMP #### [facility] [address] [place], [place] [address] Kiana Mariella Encounters Encounter Date Encounter Type Care Provider Facility Start: 05-15-2024 End: 05-15-2024 ambulatory MICHAEL HUMPHRIES Not Available Start: 05-15-2024 End: 05-15-2024 Patient encounter procedure Michael Humphries DO Work Phone: [facility] Comment on above: Encounter for screen ing colonoscopy (Primary Dx) Start: 01-02-2024 End: 01-02-2024 Telephone encounter Mihir Rogers MD Work Phone: [facility] Comment on above: Referral Start: 11-08-2022 End: 11-09-2022 ambulatory MIHIR ROGERS [place]: 11-08-2022 End: 11-08-2022 Patient encounter procedure MIHIR ROGERS [facility] Start: 11-01-2022 ambulatory MIHIR ROGERS Facility:[facility] Start: 08-31-2021 End: 09-01-[address] MIHIR ROGERS Facility:[facility] Start: 04-16-2021 End: 04-17-[address] MIHIR ROGERS Facility:[facility] Start: 04-14-2021 End: 04-14-[address] MIHIR ROGERS Facility:[facility] Start: 04-14-2021 End: 04-15-[address] MIHIR ROGERS Facility:[facility] Start: 10-20-2020 End: 10-21-[address] ANTHONY THEODORE Facility:[facility] Start: 09-23-2020 Encounter for genera l adult medical examination with abnormal findings DR ANTHONY THEODORE [facility] Start: 09-15-2020 End: 09-16-[address] ANTHONY THEODORE Facility:[facility] Start: 09-15-2020 End: 09-16-2020 Encounter for general adult medical examination with abnormal findings DR ANTHONY THEODORE Facility:[facility] Start: 09-08-2020 End: 09-09-2020 ambulatory SHAYLEE SANTIAGO Facility:[facility] Procedures Date Procedure Procedure Detail Performing Clinician Start: 08-31-[address] MIHIR VALDES Comment on above: Performed By: #### P SASC #### [facility] [address] [place] [address] Dr. Darien Galindo Start: 09-15-[address] MIHIR VALDES Comment on above: Performed By: #### P SASC, CMP #### [facility] [address] [place] [id number] Kiana Wolff Payers Date Payer Category Payer Unknown [id number] 2019 Unknown [id number] 1965 Unknown [id number] 2.16.84 [id number] 1965 Unknown [id number] 2.16.84 [id number] 1964 Unknown [id number] 2.16.84 [id number] 1964 Unknown [id number] 2.16.84 [id number] 1964 Unknown [id number] 2.16.84 [id number] 1964 Unknown [id number] 2.16.84 [id number] 1964 Unknown [id number] 2.16.84 [id number] 1964 Unknown [id number] 2.16.8 [id number] 1964 Unknown [id number] 2.16.8 [id number] 1964 Unknown [id number] 2.16.84 [id number] Social History Date Type Detail Facility Tobacco smoking status No Smoking Status Entered [facility] Sex Assigned At Male [facility] Tobacco smoking status [facility] Tobacco smoking consumption unknown [facility] Start: 1965 Sex assigned at Not on file [facility] History of Present illness Narrative 05-15-2024 DO Rachel Mckee 05/15/2024 10:30 AM EST Note Date & Type Note Facility 05-15-2024 History of Presen t illness Narrative General Surgery H&P Lisa Andrade 1965 Lisa Andrade is a 59 y.o. male presents for screening colonoscopy. Denies abdominal pain. + family hx of colon cancer uncle and grandma that they developed later in life. Denies melena or hematochezia. Denies changes in bowel habits. Denies changes in caliber of stools. Denies hx of unplanned weight loss. Denies fevers, chills, or sweats. Denies nausea or vomiting. Last colonoscopy was 2019 SUBJECTIVE: MEDICATIONS: ALLERGIES Current Outpatient Medications Medication Instructions lisinopril-hydroCHLOROthiazide 20-12.5 MG tablet 1 tablet, Oral, Daily Not on File PAST MEDICAL HISTORY: SOCIAL HISTORY SURGICAL HISTORY: No past medical history on file. No past surgical history on file. No family history on file. Not on File No past surgical history on file. Tobacco Use: Not on file Alcohol Use: Not on file Depression: Not on file Physical Activity: Not on file REVIEW OF SYMPTOMS: Review of Systems 10 systems were reviewed. Positives noted above. Remainder are negative per CMS guidelines. OBJECTIVE: There were no vitals taken for this visit. Phone visit ASSESSMENT AND PLAN: Assessment/Plan Diagnoses and all orders for this visit: Encounter for screening colonoscopy - polyethylene glycol, PEG, 3350 (Glycolax) 17 GM/SCOOP powder; Take 238 g by mouth 1 (one) time for 1 dose Take as detailed from clinic hand out for colonoscopy prep - bisacodyl (Dulcolax) 5 MG EC tablet; Take 1 tablet (5 mg) by mouth in the morning and 1 tablet (5 mg) before bedtime. Do not crush, chew, or split. Take as detailed on clinic hand out for colonoscopy prep. Plan: Patient is average risk for colon cancer. Colonoscopy can be scheduled electively. Patient informed of the risks of procedure which include but not limited to bleeding, perforation, and risks of anesthesia. Patient understood risks and signed informed consent for the procedure under monitored anesthesia care. Handout for bowel prep provided in clinic. Patient was informed of the need for a ride home from the hospital and the need for someone to be with them for the following 24 hrs post procedure. Thank you, Riley Humphries DO documented in this encounter [facility] Telephone encounter Note 01-02-2024 Telephone Encounter - Margie Iniguez - 01/02/2024 3:49 PM EDT Note Date & Type Note Facility 01-02-2024 Telephone encount er Note PATIENT WOULD LIKE A REFERRAL FOR A COLONOSCOPY. WOULD LIKE TO GO TO [place]. AN [facility] Healthcare Note 01-02-2024 Telephone Encounter - Margie Iniguez - 01/02/2024 3:49 PM EDT Note Date & Type Note Facility 01-02-2024 Miscellaneous Notes Formattin g of this note might be different from the original. PATIENT WOULD LIKE A REFERRAL FOR A COLONOSCOPY. WOULD LIKE TO GO TO [place]. AN documented in this encounter [facility] Evaluation + Plan note Note Date & Type Note Facility Evaluation + Plan note No data available for this section [facility] Evaluation note Note Date & Type Note Facility Evaluation note Diagnosis Colon cancer screening- Primary Special screening for malignant neoplasms, colon documented in this encounter [facility] Evaluation note Note Date & Type Note Facility Evaluation note Diagnosis Encounter for screening colonoscopy- Primary documented in this encounter [facility] Hospital Discharge instructions Note Date & Type Note Facility Hospital Discharge instructions No data available for this section [facility] Progress note Note Date & Type Note Facility Progress note No data available for this section [facility] Reason for referral (narrative) Consultation (Routine) - Pending Review Note Date & Type Note Facility Reason for referral (narrati ve) Specialty Diagnoses / Procedures Referred By Contac t Referred To Contact General Surgery Diagnoses Colon cancer screening Procedures TX OFFICE/OUTPATIENT NEW HIGH MDM 60 MINUTES Mihir Rogers MD [address] [place] [address] Michael Humphries DO [address] [place] [address] Referral ID Status Reason Start Date Expiration Date Visits Requested Visits Authorized [id number] Pending Review Specialty Services Required 01/02/2024 06/30/2024 1 1 [facility] Summary Purpose Family History No Family History Records FoundNo Family History Records FoundNo Family History Records Found Advance Directives No Advanced Directives Records FoundNo Advanced Directives Records FoundNo Advanced Directives Records Found Additional Source Comments (unrecognized sect ion and content) No Status Records FoundNo Status Records FoundNo Status Records Found INFORMATION SOURCE (unrecogn ized section and content) DATE CREATED AUTHOR 09/05/2021 [facility] DATE CREATED AUTHOR AUTHOR'S ORGANIZ ATION 11/09/2022 Leonardo Jayuya [facility] DATE CREATED AUTHOR AUTHOR'S ORGANIZ ATION 05/21/2024 [facility] EPIC Patient Care team informatio n (unrecognized section and content) Personnel Name: MIHIR ROGERS MD Address: Address: [address] [place] [address] Reason for Visit (unrecogniz ed section and content) Reason Onset Date Comments Referral 01/02/2024 FOR RECORDS PERTAINING TO PATIENTS WHO ARE OR HAVE BEEN ENROLLED IN A CHEMICAL DEPENDENCY/SUBSTANCEABUSE PROGRAM, SOME INFORMATION MAY BE OMITTED. This clinical summary was aggregated from multiple sources. Caution should be exercised in using it in the provision of clinical care. This summary normalizes information from multiple sources, and as a consequence, information in this document may materially change the coding, format and clinical context of patient data. In addition, data may be omitted in some cases. CLINICAL DECISIONS SHOULD BE BASED ON THE PRIMARY CLINICAL RECORDS. [facility] to be [facility]. provides no warranty or guarantee of the accuracy or completeness of information in this document.
[2024-05-22 07:46] VITALS: BP 164/86; PULSE 71; TEMP 36.3; O2SAT 98; BMI 28.4
[2024-05-22] MEDS: 0.9 % SODIUM CHLORIDE 500 ML 50 ML IV (08:01)
--- NOTE | 2024-05-22 08:14 | W.PM.PROCNOT ---
Date of procedure: 05/22/24 Pre-op diagnosis: screening colonoscopy Post-op diagnosis: other (sigmoid diverticula, mild internal hemorrhoids ) Procedure: Previous colonoscopy: 2019 procedure: screening colonoscopy The patient was given IV conscious sedation.? The patient's SPO2 remained above 90% throughout the procedure. The colonoscope was inserted per rectum and advanced under direct vision to the cecum without difficulty.? The prep was good.? Findings: Terminal ileum os: normal Cecum/Ascending colon: normal Transverse colon: normal Descending/Sigmoid colon: normal aside for diverticulosis Rectum/Anus: examined in normal and retroflexed positions and was normal aside for mild internal hemorrhoids Withdrawal Time was (minutes): 10 The colon was decompressed and the scope was removed.? The patient tolerated the procedure well. Recommendations/Plan: 1.? Lifestyle and dietary modifications as discussed 2.?F/U in 5 years for repeat c-scope due to family Hx of colon cancer 3.? Discussed with the family Anesthesia: MAC Surgeon: Clinton Humphries Estimated blood loss (mL): 0 Pathology: none sent Condition: stable Disposition: PACU
[2024-05-22 09:19] VITALS: BP 133/86; PULSE 68; TEMP 36.1; O2SAT 96
[2024-05-22 09:34] VITALS: BP 128/80; PULSE 70; O2SAT 97
[2024-05-22 09:49] VITALS: BP 134/99; PULSE 66; O2SAT 95
== END 2024-05-22 09:49 | disposition home or self-care (01) ==
PROVIDERS: PCP Family Medicine; Visit Provider Surgery
PROC: (CPT 812; principal; 2024-05-22 08:45)
DX: Z12.11 Encounter for screening for malignant neoplasm of colon (principal); K57.30 Diverticulosis of large intestine without perforation or abscess without bleeding; K64.8 Other hemorrhoids; Z80.0 Family history of malignant neoplasm of digestive organs; I10 Essential (primary) hypertension
CPT/HCPCS: 45378; J2704

== ENCOUNTER 2024-09-24 14:35 | Outpatient (OUT) | payer BC, SELFPAY ==
[2024-09-24 15:14] LABS: Basophils Absolute Auto 0.1 10^3/uL (0.0-0.1); Basophils Percent Auto 0.6 % (0.2-2.0); Eosinophils Absolute Auto 0.3 10^3/uL (0.0-0.7); Hematocrit 45.1 % (42.0-54.0); Hemoglobin 15.3 g/dL (14.0-18.0); Immature Granulocytes Abs Auto 0.02 10^3/uL (0.00-0.03); Immature Granulocytes Pct Auto 0.2 % (0.0-0.5); Lymphocytes Absolute Auto 2.2 10^3/uL (1.2-3.8); Lymphocytes Percent Auto 22.7 % (20.5-60.0); Mean Corpuscular HGB Conc 33.9 g/dL (29.9-35.2); Mean Corpuscular Hemoglobin 30.4 pg (25.9-34.0); Mean Corpuscular Volume 89.5 fL (80.0-94.0); Mean Platelet Volume 10.8 fL (9.5-13.5); Monocytes Absolute Auto 0.7 10^3/uL (0.3-0.8); Monocytes Percent Auto 6.7 % (1.7-12.0); Neutrophils Absolute Auto 6.5 10^3/uL (1.4-6.5); Neutrophils Percent Auto 66.8 % (43.0-75.0); Platelet Count 271 10^3/uL (150-450); Red Blood Count 5.04 10^6/uL (4.70-6.10); Red Cell Distribution Width 13.4 % (11.0-15.0); White Blood Count 9.7 10^3/uL (4.0-11.0)
[2024-09-24 15:29] LABS: Estimated Average Glucose 114 mg/dL; Glycohemoglobin A1C 5.6 % (4.5-6.2)
[2024-09-24 15:33] LABS: Alanine Aminotransferase 28 U/L (16-63); Albumin Globulin Ratio 1.1; Albumin Level 3.7 g/dL (3.4-5.0); Alkaline Phosphatase 71 U/L (46-116); Anion Gap 11.2; Aspartate Amino Transferase 17 U/L (15-37); BUN Creatinine Ratio 12.6; Bilirubin Direct 0.1 mg/dL (0.0-0.2); Bilirubin Total 0.2 mg/dL (0.2-1.0); Calcium 8.6 mg/dL (8.5-10.1); Carbon Dioxide 29.3 mmol/L (21.0-32.0); Chloride 105 mmol/L (98-107); Chol HDL Ratio 2.7; Cholesterol 134 mg/dL (<=200); Estimated GFR (African America >60 (>=60 mL/min/1.73m^2); Estimated GFR (Non-African Ame 58 (>=60 mL/min/1.73m^2); Globulin 3.3 g/dL; Glucose 107 mg/dL (74-106); HDL Cholesterol 49 mg/dL (40-60); Potassium 3.5 mmol/L (3.5-5.1); Sodium 142 mmol/L (136-145); Triglycerides 150 mg/dL (<=150)
[2024-09-24 16:07] LABS: Prostate Specific Antigen Scrn 7.91 ng/mL (<=4.00)
== END 2024-09-24 14:36 | disposition home or self-care (01) ==
LOC: LAB 14:38
PROVIDERS: PCP Family Medicine; Visit Provider Family Medicine
DX: Z00.00 Encounter for general adult medical examination without abnormal findings (principal)
CPT/HCPCS: 36415; 80048; 80061; 80076; 83036; 84443; 85025; G0103